=== PATIENT | female | born 1970 | race Two or more races ===

== ENCOUNTER 2020-06-22 09:06 | Outpatient (CLI) | payer OTHER | END 2020-06-22 09:14 | disposition home or self-care (01) | LOC: RAD 09:06 | DX: M41.87 Other forms of scoliosis, lumbosacral region (principal); M54.2 Cervicalgia; R29.3 Abnormal posture ==

== ENCOUNTER 2021-01-19 08:00 | Outpatient (CLI) | payer OTHER | END 2021-01-19 08:30 | disposition home or self-care (01) | LOC: PPH VACUNA 08:00 | DX: Z23 Encounter for immunization (principal) ==

== ENCOUNTER 2021-02-09 08:00 | Outpatient (CLI) | payer OTHER | END 2021-02-09 08:30 | disposition home or self-care (01) | LOC: PPH VACUNA 08:00 | DX: Z23 Encounter for immunization (principal) ==